=== PATIENT | male | born 1960 | race African-American/Black ===

== ENCOUNTER 2017-10-17 13:03 | Inpatient (IN) | payer OTHER ==
[2017-10-17 15:38] VITALS: BMI 24.3
--- NOTE | 2017-10-17 20:35 | HP ---
CIWA Score - CIWA Score Nausea/Vomitin-Mild Nausea/No Vomiting Muscle Tremors: 4-Moderate,w/Arms Extend Anxiety: 4-Mod. Anxious/Guarded Agitation: 4-Moderately Restless Paroxysmal Sweats: 1-Minimal Palms Moist Orientation: 0-Oriented Tacttile Disturbances: 0-None Auditory Disturbances: 0-None Visual Disturbances: 0-None Headache: 2-Mild CIWA-Ar Total Score: 16 Admission ROS BHS - HPI Chief Complaint: C/O WITHDRAWAL SX'S. SEEKING DETOX FOR ALCOHOLISM Allergies/Adverse Reactions: Allergies Allergy/AdvReac Type Severity Reaction Status Date / Time No Known Allergies Allergy Verified 10/17/17 16:42 History of Present Illness: 57 Y.O . MALE WITH LONG HX/O ALCOHOLISM ADMITTED TO DETOX. CLIENT DENIES ANY SUBSTANCE ABUSE TXMENT IN THE LAST 2 YEARS. REPORTS LONGEST CLEAN TIME 6 MONTHS. REFERRED BY HIS COUNSELOR AT HIS [facility] Exam Limitations: No Limitations - Ebola screening Have you traveled outside of the country in the last 21 days: No Have you had contact with anyone from an Ebola affected area: No Have you been sick,other than usual withdrawal symptoms: No - Review of Systems Constitutional: Chills, Loss of Appetite, Night Sweats, Changes in sleep EENT: reports: No Symptoms Reported Respiratory: reports: No Symptoms reported Cardiac: reports: No Symptoms Reported GI: reports: Nausea, Poor Appetite, Poor Fluid Intake : reports: No Symptoms Reported Musculoskeletal: reports: No Symptoms Reported Integumentary: reports: No Symptoms Reported Neuro: reports: No Symptoms reported Endocrine: reports: No Symptoms Reported Hematology: reports: No Symptoms Reported Psychiatric: reports: No Sypmtoms Reported Other Systems: Reviewed and Negative Patient History - Patient Medical History Hx Anemia: No Hx Asthma: No Hx Chronic Obstructive Pulmonary Disease (COPD): No Hx Cancer: No Hx Cardiac Disorders: No Hx Congestive Heart Failure: No Hx Hypertension: No Hx Hypercholesterolemia: No Hx Pacemaker: No HX Cerebrovascular Accident: No Hx Seizures: No Hx Dementia: No Hx Diabetes: No Hx Gastrointestinal Disorders: No Hx Liver Disease: No Hx Genitourinary Disorders: No Hx Sexually Transmitted Disorders: No Hx Renal Disease (ESRD): No Hx Thyroid Disease: No Hx Human Immunodeficiency Virus (HIV): No Hx Hepatitis C: No Hx Depression: Yes Hx Suicide Attempt: No Hx Bipolar Disorder: Yes Hx Schizophrenia: Yes (schizoaffective disorder) Other Medical History: DENIES MED MGMT FOR PSYCH - Patient Surgical History Past Surgical History: No Hx Neurologic Surgery: No Hx Cataract Extraction: No Hx Cardiac Surgery: No Hx Lung Surgery: No Hx Breast Surgery: No Hx Breast Biopsy: No Hx Abdominal Surgery: No Hx Appendectomy: No Hx Cholecystectomy: No Hx Genitourinary Surgery: No Hx Section: No Hx Orthopedic Surgery: No Anesthesia Reaction: No - PPD History Previous Implant?: Yes Documented Results: Negative w/o proof Implanted On Prior [facility] Admission?: No PPD to be Administered?: Yes - Smoking Cessation Smoking history: Current every day smoker Have you smoked in the past 12 months: Yes Aproximately how many cigarettes per day: 7 Cigars Per Day: 0 Hx Chewing Tobacco Use: No Initiated information on smoking cessation: Yes 'Breaking Loose' booklet given: 10/17/17 - Substance & Tx. History Hx Alcohol Use: Yes Hx Substance Use: Yes Substance Use Type: Alcohol, Cocaine Hx Substance Use Treatment: Yes ([facility]) - Substances Abused Cocaine Route: Inhalation Frequency: Daily Amount used: $60 Age of first use: 19 Date of Last Use: 10/17/17 Alcohol-beer Route: Oral Frequency: Daily Amount used: 2-6 pks. Age of first use: 25 Date of Last Use: 10/17/17 Family Disease History - Family Disease History Family History: Denies Admission Physical Exam S - Vital Signs Vital Signs: Vital Signs - 24 hr 10/17/17 15:35 Temperature 97 F L Pulse Rate 85 Respiratory 20 Rate Blood Pressure 135/87 - Physical General Appearance: Yes: Appropriately Dressed, Mild Distress, Tremorous, Irritable, Anxious HEENTM: Yes: EOMI, Normal ENT Inspection, Normocephalic, Normal Voice, TORI, Pharynx Normal Respiratory: Yes: Chest Non-Tender, Lungs Clear, Normal Breath Sounds, No Respiratory Distress, No Accessory Muscle Use Neck: Yes: No masses,lesions,Nodules, Supple, Trachea in good position Breast: Yes: Breast Exam Deferred Cardiology: Yes: Regular Rhythm, Regular Rate, S1, S2 Abdominal: Yes: Normal Bowel Sounds, Non Tender, Soft Genitourinary: Yes: Within Normal Limits Back: Yes: Normal Inspection Musculoskeletal: Yes: full range of Motion, Gait Steady Extremities: Yes: Normal Capillary Refill, Normal Range of Motion, Non-Tender, Tremors Neurological: Yes: customs verifier II-XII NML intact, Fully Oriented, Alert, Motor Strength 5/5 Integumentary: Yes: Normal Color, Dry, Warm Lymphatic: Yes: Within Normal Limits - Diagnostic (1) Alcohol dependence with uncomplicated withdrawal Current Visit: Yes Status: Chronic (2) Nicotine dependence Current Visit: Yes Status: Chronic Qualifiers: Nicotine product type: cigarettes Substance use status: uncomplicated Qualified Code(s): F17.210 - Nicotine dependence, cigarettes, uncomplicated (3) Cocaine dependence, uncomplicated Current Visit: Yes Status: Chronic Cleared for Admission [facility] - Detox or Rehab [facility] Level of Care: Medically Managed Detox Regimen/Protocol: Librium Claeared for Rehab Admission: No [facility] Breath Alcohol Content Breath Alcohol Content: 0 Urine Drug Screen - Results Drug Screen Negative: No Urine Drug Screen Results: HAROLDO-Cocaine
[2017-10-17] MEDS ORDERED: LOPERAMIDE HCL 2 MG CAPSULE PO PRN (20:36)
[2017-10-17] MEDS ORDERED: NICOTINE POLACRILEX 2 MG GUM BC PRN (20:36)
[2017-10-17] MEDS ORDERED: IBUPROFEN 400 MG TABLET (FP) PO PRN (20:36)
[2017-10-17] MEDS ORDERED: MAG HYDROX/AL HYDROX/SIMETH 30 ML UNIT-DOSE CUP PO PRN (20:36)
[2017-10-17] MEDS ORDERED: hydrOXYzine PAMOATE 50 MG CAPSULE (FP) PO PRN (20:36)
[2017-10-17] MEDS ORDERED: guaiFENesin/D-METHORPHAN HB 10 ML UNIT-DOSE CUPS PO PRN (20:36)
[2017-10-17] MEDS ORDERED: MENTHOL/PHENOL 1 EACH UD MM PRN (20:36)
[2017-10-17] MEDS ORDERED: chlordiazePOXIDE HCL 25 MG CAPSULE PO PRN (20:36)
[2017-10-17] MEDS ORDERED: MAGNESIUM CITRATE 300 ML BOTTLE PO PRN (20:36)
[2017-10-17] MEDS ORDERED: MAGNESIUM HYDROX 2400MG/30ML ORAL SUSPENSION 30 ML CUP PO PRN (20:36)
[2017-10-17] MEDS ORDERED: P-EPHED 60MG/TRIPROLIDI 2.5MG TABLET PO PRN (20:36)
[2017-10-17] MEDS ORDERED: ACETAMINOPHEN 325 MG TABLET (FP) PO PRN (20:36)
[2017-10-17] MEDS: chlordiazePOXIDE HCL 25 MG CAPSULE PO SCH (22:21)
[2017-10-17] MEDS: THIAMINE HCL 100 MG TABLET (FP) PO SCH (22:21)
[2017-10-18 02:12] LABS: URINE APPEARANCE CLEAR; URINE BILIRUBIN NEGATIVE (NEGATIVE); URINE BLOOD NEGATIVE (NEGATIVE); URINE COLOR YELLOW; URINE GLUCOSE (UA) NEGATIVE (NEGATIVE); URINE KETONE NEGATIVE (NEGATIVE); URINE LEUK ESTERASE NEGATIVE (NEGATIVE); URINE NITRITE NEGATIVE (NEGATIVE); URINE PROTEIN NEGATIVE (NEGATIVE); URINE UROBILINOGEN 4.0 E.U/dl mg/dL (0.2-1.0)
[2017-10-18] MEDS: chlordiazePOXIDE HCL 25 MG CAPSULE PO SCH ×4 (06:31→22:36)
--- NOTE | 2017-10-18 09:28 | PN ---
S CIWA - CIWA Score Nausea/Vomitin Muscle Tremors: 3 Anxiety: 3 Agitation: 3 Paroxysmal Sweats: 1-Minimal Palms Moist Orientation: 0-Oriented Tacttile Disturbances: 1-Very Mild Itch/Numbness Auditory Disturbances: 1-Very Mild Visual Disturbances: 0-None Headache: 2-Mild CIWA-Ar Total Score: 17 BHS Progress Note (SOAP) Subjective: ALERT,IRRITABLE,INTERRUPTED SLEEP,TREMOR,PAIN IN THE BODY Objective: 10/18/17 09:26 Vital Signs Temperature 96.3 F L 10/18/17 06:17 Pulse Rate 61 10/18/17 06:17 Respiratory Rate 16 10/18/17 06:17 Blood Pressure 101/60 10/18/17 06:17 O2 Sat by Pulse Oximetry (%) EKG NSR,INVERTED T IN V4,V5 NO CHEST PAIN,NO SOB,NO DIZZINESS Laboratory Last Values Urine Color Yellow 10/17/17 22:53 Urine Appearance Clear 10/17/17 22:53 Urine pH 5.0 (5.0-8.0) 10/17/17 22:53 Ur Specific [place] 1.026 (1.001-1.035) 10/17/17 22:53 Urine Protein Negative (NEGATIVE) 10/17/17 22:53 Urine Glucose (UA) Negative (NEGATIVE) 10/17/17 22:53 Urine Ketones Negative (NEGATIVE) 10/17/17 22:53 Urine Blood Negative (NEGATIVE) 10/17/17 22:53 Urine Nitrite Negative (NEGATIVE) 10/17/17 22:53 Urine Bilirubin Negative (NEGATIVE) 10/17/17 22:53 Urine Urobilinogen 4.0 e.u/dl mg/dL (0.2-1.0) 10/17/17 22:53 Ur Leukocyte Esterase Negative (NEGATIVE) 10/17/17 22:53 LABS PENDING Assessment: 10/18/17 09:28 WITHDRAWAL SYMPTOM Plan: CONTINUE DETOX
[2017-10-18] MEDS: NICOTINE 14 MG/24 HOURS TOPICAL PATCH TD SCH (10:24)
[2017-10-18] MEDS: PRENATAL VITAMINS W/ FOLIC ACID TABLET (FP) PO SCH (10:24)
[2017-10-18 10:43] LABS: HEMATOCRIT 40.5 % (35.4-49); MCH 31.2 pg (25.7-33.7); MCHC 32.1 g/dl (32.0-35.9); MEAN PLT VOLUME 10.1 fl (7.5-11.1); PLATELET COUNT 153 K/MM3 (134-434); RBC 4.18 M/mm3 (4.00-5.60); RDW 12.5 % (11.9-15.9); WHITE BLOOD COUNT 8.5 K/mm3 (4.0-10.0)
[2017-10-18 11:13] LABS: ALBUMIN 3.3 g/dl (3.4-5.0); ANION GAP 7 (8-16); BLOOD UREA NITROGEN 25 mg/dL (7-18); CALCIUM 8.5 mg/dL (8.5-10.1); CHLORIDE 108 mmol/L (98-107); CO2 29 mmol/L (21-32); GLUCOSE,RANDOM 74 mg/dL (74-106); POTASSIUM 4.2 mmol/L (3.5-5.1); SGOT/AST 14 U/L (15-37); SGPT/ALT 15 U/L (12-78); SODIUM 144 mmol/L (136-145)
[2017-10-18 11:21] LABS: ALK PHOS 57 U/L (45-117); BILIRUBIN,TOTAL 0.4 mg/dL (0.2-1.0); CREATININE 1.1 mg/dL (0.7-1.3); TOT PROT 6.6 g/dl (6.4-8.2)
--- NOTE | 2017-10-18 16:56 | CONSULT ---
[facility] Psychiatric Consult - Data Date of interview: 10/18/17 Admission source: [facility] Identifying data: First admission to [facility] for this 57 y/o AA male seeking detox treatment on for alcohol and cocaine dependence.Patient introduces himself as ,a father of seven,domiciled ([place] setting) in [place],unemployed and supported on SSI benefits. Substance Abuse History: Confirmed by patient in this interview.Mr Red admits to daily use of alcohol and cocaine.Smoking history: Current every day smoker. Have you smoked in the past 12 months: Yes. Aproximately how many cigarettes per day: 7. Cigars Per Day: 0. Hx Chewing Tobacco Use: No. Initiated information on smoking cessation: Yes. 'Breaking Loose' booklet given : 10/17/17. - Substance & Tx. History. Hx Alcohol Use: Yes. Hx Substance Use : Yes. Substance Use Type: Alcohol, Cocaine. Hx Substance Use Treatment: Yes ( [facility]). - Substances Abused. Cocaine. Route: Inhalation. Frequency: Daily. Amount used: $60. Age of first use: 19. Date of Last Use: 10/17/17. * * Alcohol-beer. Route: Oral. Frequency: Daily. Amount used: 2-6 pks. Age of first use: 25. Date of Last Use: 10/17/17 Medical History: Patient endorses good general health. Psychiatric History: Patient admits to a long standing history of mental illness (onset at age 19).Multiple psychiatric hospitalizations which include more than seven retentions at [facility] ([facility]) .Diagnosed with Schizoaffective Disorder and maintained on a regimen of risperdal 3 mg po bid + depakote 500 mg po bid + cogentin 1 mg po bid.Mr Red declares that he is adherent to his regimen (medications are dispensed by staff at the residential facility).Patient is currently followed by a local ACT team.Denies history of suicide attempts. Physical/Sexual Abuse/Trauma History: No reported history of abuse. Additional Comment: Urine Drug Screen Results: HAROLDO-Cocaine.Noted. Mental Status Exam - Mental Status Exam Alert and Oriented to: Time, Place, Person Cognitive Function: Grossly Intact Patient Appearance: Unkempt, Disheveled Mood: Nervous, Withdrawn, Anxious Affect: Inappropriate Patient Behavior: Fatigued, Cooperative Speech Pattern: Clear, Delayed, Slurred Voice Loudness: Normal Thought Process: Goal Oriented Thought Disorder: Bizarre Hallucinations: Denies Suicidal Ideation: Denies Homicidal Ideation: Denies Insight/Judgement: Fair Sleep: Well Appetite: Good Muscle strength/Tone: Normal Gait/Station: Normal Psychiatric Findings - Problem List ([place] 1, 2,3) (1) Alcohol dependence with uncomplicated withdrawal Current Visit: Yes Status: Acute (2) Cocaine dependence, uncomplicated Current Visit: Yes Status: Acute (3) Nicotine dependence Current Visit: Yes Status: Acute Qualifiers: Nicotine product type: cigarettes Substance use status: uncomplicated Qualified Code(s): F17.210 - Nicotine dependence, cigarettes, uncomplicated (4) Schizoaffective disorder Current Visit: Yes Status: Chronic Comment: Confirmed by staff at [facility] residence.Patient is on medications.Followed by a local ACT team in [facility]. - Initial Treatment Plan Initial Treatment Plan: Contact established via telephone ([phone]) with staff at [facility] (with the patient's verbal authorization) .Medications are verified.Adherence confirmed.Psychoeducation and support provided to patient in this session.Detoxification in progress.Medications resumed as follows : risperdal 2 mg po bid + cogentin 1 mg po bid + depakote 500 mg po bid.Side effects/benefits of each drug are reviewed with the patient.No report of prior history of adverse events from this regimen.Mr Red insists on taking his medications in current hospital course.Consent ( verbal) given to this hand sign writer.Daily monitoring of clinical progress.No scripts required at discharge (ACT team coverage already in place).Valproic acid level requested : pending.Will follow.
[2017-10-18] MEDS: risperiDONE 2 MG TABLET PO SCH (22:35)
[2017-10-18] MEDS: DIVALPROEX SODIUM 500 MG TABLET E.C. PO SCH (22:35)
[2017-10-18] MEDS: THIAMINE HCL 100 MG TABLET (FP) PO SCH (22:36)
[2017-10-18] MEDS: BENZTROPINE MESYLATE 1 MG TABLET (FP) PO SCH (22:36)
[2017-10-19] MEDS: chlordiazePOXIDE HCL 25 MG CAPSULE PO SCH ×3 (06:00→17:38)
--- NOTE | 2017-10-19 09:33 | PN ---
S CIWA - CIWA Score Nausea/Vomitin-No Nausea/No Vomiting Muscle Tremors: 3 Anxiety: 3 Agitation: 3 Paroxysmal Sweats: 1-Minimal Palms Moist Orientation: 0-Oriented Tacttile Disturbances: 1-Very Mild Itch/Numbness Auditory Disturbances: 0-None Visual Disturbances: 0-None Headache: 1-Very Mild CIWA-Ar Total Score: 12 BHS Progress Note (SOAP) Subjective: sweat tremor anxiety restlessness Objective: 10/19/17 09:32 Vital Signs Temperature 96.9 F L 10/19/17 06:15 Pulse Rate 62 10/19/17 06:15 Respiratory Rate 16 10/19/17 06:15 Blood Pressure 103/51 10/19/17 06:15 O2 Sat by Pulse Oximetry (%) Laboratory Last Values WBC 8.5 K/mm3 (4.0-10.0) 10/18/17 07:50 RBC 4.18 M/mm3 (4.00-5.60) 10/18/17 07:50 Hgb 13.0 GM/dL (11.7-16.9) 10/18/17 07:50 Hct 40.5 % (35.4-49) 10/18/17 07:50 MCV 97.0 fl (80-96) H 10/18/17 07:50 MCH 31.2 pg (25.7-33.7) 10/18/17 07:50 MCHC 32.1 g/dl (32.0-35.9) 10/18/17 07:50 RDW 12.5 % (11.9-15.9) 10/18/17 07:50 Plt Count 153 K/MM3 (134-434) 10/18/17 07:50 MPV 10.1 fl (7.5-11.1) 10/18/17 07:50 Sodium 144 mmol/L (136-145) 10/18/17 07:50 Potassium 4.2 mmol/L (3.5-5.1) 10/18/17 07:50 Chloride 108 mmol/L (98-107) H 10/18/17 07:50 Carbon Dioxide 29 mmol/L (21-32) 10/18/17 07:50 Anion Gap 7 (8-16) L 10/18/17 07:50 BUN 25 mg/dL (7-18) H 10/18/17 07:50 Creatinine 1.1 mg/dL (0.7-1.3) 10/18/17 07:50 Creat Clearance w eGFR > 60 (>60) 10/18/17 07:50 Random Glucose 74 mg/dL (74-106) 10/18/17 07:50 Calcium 8.5 mg/dL (8.5-10.1) 10/18/17 07:50 Total Bilirubin 0.4 mg/dL (0.2-1.0) 10/18/17 07:50 AST 14 U/L (15-37) L 10/18/17 07:50 ALT 15 U/L (12-78) 10/18/17 07:50 Alkaline Phosphatase 57 U/L (45-117) 10/18/17 07:50 Total Protein 6.6 g/dl (6.4-8.2) 10/18/17 07:50 Albumin 3.3 g/dl (3.4-5.0) L 10/18/17 07:50 Urine Color Yellow 10/17/17 22:53 Urine Appearance Clear 10/17/17 22:53 Urine pH 5.0 (5.0-8.0) 10/17/17 22:53 Ur Specific [place] 1.026 (1.001-1.035) 10/17/17 22:53 Urine Protein Negative (NEGATIVE) 10/17/17 22:53 Urine Glucose (UA) Negative (NEGATIVE) 10/17/17 22:53 Urine Ketones Negative (NEGATIVE) 10/17/17 22:53 Urine Blood Negative (NEGATIVE) 10/17/17 22:53 Urine Nitrite Negative (NEGATIVE) 10/17/17 22:53 Urine Bilirubin Negative (NEGATIVE) 10/17/17 22:53 Urine Urobilinogen 4.0 e.u/dl mg/dL (0.2-1.0) 10/17/17 22:53 Ur Leukocyte Esterase Negative (NEGATIVE) 10/17/17 22:53 RPR Titer Nonreactive (NONREACTIVE) 10/18/17 07:50 Hepatitis C Antibody 0.1 s/co ratio (0.0-0.9) 10/18/17 07:50 lab noted Assessment: 10/19/17 09:32 withdrawal sx Plan: continue detox
[2017-10-19] MEDS: PRENATAL VITAMINS W/ FOLIC ACID TABLET (FP) PO SCH (10:21)
[2017-10-19] MEDS: BENZTROPINE MESYLATE 1 MG TABLET (FP) PO SCH ×2 (10:22→22:50)
[2017-10-19] MEDS: risperiDONE 2 MG TABLET PO SCH ×2 (10:22→22:51)
[2017-10-19] MEDS: NICOTINE 14 MG/24 HOURS TOPICAL PATCH TD SCH (10:22)
[2017-10-19] MEDS: DIVALPROEX SODIUM 500 MG TABLET E.C. PO SCH ×2 (10:22→22:50)
--- NOTE | 2017-10-19 13:20 | EKG ---
Test Reason : Blood Pressure : / mmHG Vent. Rate : 067 BPM Atrial Rate : 067 BPM P-R Int : 146 ms QRS Dur : 076 ms QT Int : 400 ms P-R-T Axes : 059 065 029 degrees QTc Int : 422 ms NORMAL SINUS RHYTHM NONSPECIFIC T WAVE ABNORMALITY ABNORMAL ECG NO PREVIOUS ECGS AVAILABLE CLINICAL CORRELATION IS RECOMMENDED Confirmed by JUAN DIEGO MAHARAJ MD ([id number]) on 10/19/2017 1:20:05 PM Referred By: Confirmed By:JUAN DIEGO MAHARAJ MD
[2017-10-19] MEDS: THIAMINE HCL 100 MG TABLET (FP) PO SCH (22:50)
[2017-10-19] MEDS: chlordiazePOXIDE 5 MG CAPSULE PO SCH (22:52)
[2017-10-20] MEDS: chlordiazePOXIDE 5 MG CAPSULE PO SCH ×3 (05:30→17:55)
--- NOTE | 2017-10-20 09:29 | PN ---
S Progress Note (SOAP) Subjective: ALERT,IRRITABLE,INTERRUPTED SLEEP Objective: 10/20/17 09:27 Vital Signs Temperature 96.9 F L 10/20/17 06:10 Pulse Rate 77 10/20/17 06:10 Respiratory Rate 19 10/20/17 06:10 Blood Pressure 105/51 10/20/17 06:10 O2 Sat by Pulse Oximetry (%) Assessment: 10/20/17 09:28 WITHDRAWAL SYMPTOM Plan: CONTINUE DETOX
[2017-10-20] MEDS: DIVALPROEX SODIUM 500 MG TABLET E.C. PO SCH ×2 (10:15→22:12)
[2017-10-20] MEDS: PRENATAL VITAMINS W/ FOLIC ACID TABLET (FP) PO SCH (10:15)
[2017-10-20] MEDS: BENZTROPINE MESYLATE 1 MG TABLET (FP) PO SCH ×2 (10:16→22:12)
[2017-10-20] MEDS: risperiDONE 2 MG TABLET PO SCH ×2 (10:18→22:11)
[2017-10-20] MEDS: NICOTINE 14 MG/24 HOURS TOPICAL PATCH TD SCH (10:19)
--- NOTE | 2017-10-20 16:17 | PN ---
[facility] Progress Note Note: Psychiatry Attending's note (follow-up) : Valproic acid level = 50.786 Within therapeutic range. No report of adverse effects. Normal liver function tests. Continue depakote 500 mg po bid.
[2017-10-20] MEDS: chlordiazePOXIDE HCL 10 MG CAPSULE PO SCH (22:11)
[2017-10-20] MEDS: THIAMINE HCL 100 MG TABLET (FP) PO SCH (22:11)
[2017-10-21] MEDS: chlordiazePOXIDE HCL 10 MG CAPSULE PO SCH (06:59)
--- NOTE | 2017-10-21 08:10 | DS ---
[facility] Detox Discharge Summary Admission Date: 10/17/17 Discharge Date: 10/21/17 - History Present History: Alcohol Dependence, Cocaine Dependence Additional Comments: follow up with after care program as arrangement Pertinent Past History: nicotine dependence - Physical Exam Results Vital Signs: Vital Signs Temperature 99.7 F H 10/21/17 06:00 Pulse Rate 86 10/21/17 06:00 Respiratory Rate 18 10/21/17 06:00 Blood Pressure 130/74 10/21/17 06:00 O2 Sat by Pulse Oximetry (%) Pertinent Admission Physical Exam Findings: withdrawal symptom and finding - Treatment Hospital Course: Detox Protocol Followed, Detoxed Safely, Responded well, Discharged Condition Good, Rehab Referral Accepted Patient has Accepted a Rehab Referral to: [facility] - Medication Discharge Medications: Ambulatory Orders Risperidone [Risperdal] 2 mg PO HS 10/17/17 - Diagnosis (1) Alcohol dependence with uncomplicated withdrawal Current Visit: Yes Status: Acute (2) Cocaine dependence, uncomplicated Current Visit: Yes Status: Acute (3) Nicotine dependence Current Visit: Yes Status: Acute Qualifiers: Nicotine product type: cigarettes Substance use status: uncomplicated Qualified Code(s): F17.210 - Nicotine dependence, cigarettes, uncomplicated (4) Schizoaffective disorder Current Visit: Yes Status: Chronic - AMA Did Patient Leave Against Medical Advice: No
[2017-10-21 11:02] VITALS: BP 141/73; PULSE 95; TEMP 97.7
== END 2017-10-21 10:06 | disposition home or self-care (01) | DRG 774 ==
LOC: YASAS 13:03 → Y6N 17:43
PROVIDERS: ADMIT Internal Medicine; ATTEND Internal Medicine
PROC: HZ2ZZZZ Detoxification Services for Substance Abuse Treatment (ICD-10-PCS; principal; 2017-10-17)
DX: F10.230 Alcohol dependence with withdrawal, uncomplicated (principal); F14.20 Cocaine dependence, uncomplicated; F17.210 Nicotine dependence, cigarettes, uncomplicated; F25.9 Schizoaffective disorder, unspecified
CPT/HCPCS: 36415; 80053; 80164; 81003; 85027; 86593; 86803; 93005; 93010